=== PATIENT | female | born 1980 | race Caucasian/White ===

== ENCOUNTER → 2016-06-17 | Outpatient (CLI) | payer BC ==
[2016-06-17 11:04] LABS: BASO ABS # 0.06 K/uL (0-0.2); COMPLETE YES; EOS % 2.8 %; HEMATOCRIT 41.9 % (37-47); LYMPH % 33.8 %; LYMPH ABS # 2.03 K/uL (1.2-3.4); MEAN CELL VOLUME 77.9 fL (80-100); MEAN CORPUSCULAR HEMOGLOBIN 27.1 pg (25-34); MEAN CORPUSCULAR HGB CONC 34.8 g/dl (32-36); MEAN PLATELET VOLUME 10.4 fL (7.4-10.4); MONO % 4.3 %; NEUT % 58.1 %; PLATELET COUNT 266 K/uL (130-400); RED BLOOD COUNT 5.38 M/uL (4.2-5.4)
[2016-06-17 11:35] LABS: BLOOD UREA NITROGEN 9 mg/dl (7-18); BUN/CREATININE RATIO 11.7 (10-20); CALCIUM 8.9 mg/dl (8.5-10.1); CARBON DIOXIDE 25 mmol/L (21-32); CHLORIDE 105 mmol/L (98-107); CREATININE 0.75 mg/dl (0.60-1.20); GLUCOSE 80 mg/dl (70-99); POTASSIUM 4.5 mmol/L (3.5-5.1); SODIUM 139 mmol/L (136-145)
[2016-06-17 11:46] LABS: CHOLESTEROL 208 mg/dl (0-200); CHOLESTEROL/HDL RATIO 3.4; HDL CHOLESTEROL 61 mg/dl; LDL CHOLESTEROL CALCULATED 122 mg/dl; TRIGLYCERIDES 127 mg/dl (0-150); VERY LOW DENSITY LIPOPROT CALC 25 mg/dl
== END | disposition home or self-care (01) ==
LOC: C.LAB1850 09:39
PROVIDERS: ATTEND Internal Medicine Geriatric Medicine
DX: R00.2 Palpitations (principal); R06.09 Other forms of dyspnea; R94.6 Abnormal results of thyroid function studies; E05.90 Thyrotoxicosis, unspecified without thyrotoxic crisis or storm

== ENCOUNTER → 2016-06-19 | Outpatient (CLI) | payer BC ==
[2016-06-19 11:38] LABS: THYROID STIMULATING HORMONE 19.3 uIu/ml (0.300-4.500)
[2016-06-19 11:59] LABS: CALCULATED INSULIN SENSITIVITY 0.351; GLUCOSE LOG 1.9031; INSULIN FASTING 8.8 mU/L (3-25); INSULIN LOG 0.9445
[2016-06-25 19:30] LABS: MICROSOMAL AB 353 IU/ML (<9); TSI <89 % baseline (<140)
== END | disposition home or self-care (01) ==
LOC: C.LAB1850 10:15
PROVIDERS: ATTEND Internal Medicine Endocrinology, Diabetes & Metabolism
DX: E05.90 Thyrotoxicosis, unspecified without thyrotoxic crisis or storm (principal); E88.81 Metabolic syndrome and other insulin resistance

== ENCOUNTER → 2017-08-18 | Outpatient (CLI) | payer BC, OTHER | END | disposition home or self-care (01) | LOC: C.LABSPEC 15:53 | PROVIDERS: ATTEND Obstetrics & Gynecology | DX: O09.521 Supervision of elderly multigravida, first trimester (principal) ==

== ENCOUNTER 2018-10-07 08:12 | Inpatient (IN) ==
--- OUTSIDE RECORDS SUMMARY | 2018-10-07 08:17 | External Medical Summary | Continuity of Care Document ---
:1980 Author Name Kim Hobson, Provider Address Unavailable Unavailable , Care Team Providers Name Role Phone Сергей Hobson, [email or web address] Sean [email or web address], 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 82) (O09.523) History of miscarriage (V13.29) (Z87.59) Palpitations (785.1) (R00.2) Patellofemoral syndrome (719.46) (M22.2X9) Thyroiditis (245.9) (E06.9) Insulin resistance (277.7) (E88.81) Allergies and Adverse Reactions No Known Drug Allergies (Allergy) Medications Vitamins TABS Refills: 0 Levothyroxine Sodium 50 MCG Oral Tablet; TAKE 8 TABLET S WEEKLY. Jazlyn Rushing Start: 04-Mar-2018 Quantity: 35 Refills: 5 Procedures History of Need for DTP vaccine Status: Completed History of Tonsillectomy Status: Complet ed History of dilation and curettage Status : Completed Immunizations Tdap (Adacel) On: 22-Sep-2012 Lot #: [id number], Fluzone INJ On: 13-Dec-2012 10:11 Lot #: [id number], SANOFI PASTEUR Tdap (Adacel) On: 08-Jul-2018 16:28 Lot #: [id number], SANOFI PASTEUR Family History Unknown Family Member Family history of Denial Of Any Significant Status: Active Comments: Family History Medical History Father Family history of cardiac disorder (V17.49) (Z82.49) Status: Active Mother Family history of hypertension (V17.49) (Z82.49) Status: Act cherelle Family history of osteoporosis (V17.81) (Z82.62) Status: Act cherelle Interventions Labs/Procedures/ImagingNon-stress test; Done: 06 Oct 2018Follow-ups/Referrals Follow-up visit in 6 weeks; Done: 06 Oct 2018 Plan of Treatment Planned Observations Planned Goals not documented Results Non-stress test (Pending) Laboratory: In [place] 09-Sep-2018 12:29 Non-Stress Test Reactive Non-stress test (Pending) Laboratory: In [place] 16-Sep-2018 16:11 Non-Stress Test Reactive Non-stress test (Pending) Laboratory: In [place] 22-Sep-2018 13:31 Non-Stress Test Reactive Non-stress test (Pending) Laboratory: In [place] 30-Sep-2018 14:44 Non-Stress Test Reactive Non-stress test (Pending) Laboratory: In [place] 06-Oct-2018 11:36 Non-Stress Test Reactive Vital Signs 06-Oct-2018 10:25 Systolic 100 mm[Hg] Diastolic 70 mm[Hg] Height 62 in BMI Calculated 27.33 kg/m2 Weight 149.4 lb BSA Calculated 1.69 m2 30-Sep-2018 14:27 Systolic 110 mm[Hg] Diastolic 82 mm[Hg] Height 62 in BMI Calculated 27.69 kg/m2 Weight 151.4 lb BSA Calculated 1.7 m2 22-Sep-2018 13:05 Systolic 112 mm[Hg] Diastolic 76 mm[Hg] Height 62 in BMI Calculated 27.4 kg/m2 Weight 149.8 lb BSA Calculated 1.69 m2 16-Sep-2018 15:34 Systolic 114 mm[Hg] Diastolic 64 mm[Hg] Height 62 in BMI Calculated 27.14 kg/m2 Weight 148.4 lb BSA Calculated 1.68 m2 09-Sep-2018 11:33 Systolic 102 mm[Hg] Diastolic 70 mm[Hg] Height 62 in BMI Calculated 27.11 kg/m2 Weight 148.2 lb BSA Calculated 1.68 m2 Encounters Appointment; [facility] SC1, Ultrasound 06-Oct-2018 11:00 Encounter Diagnosis: Problem not documented Appointment; OB SC1, Nonstress Test 06-Oct-2018 10:30 Encounter Diagnosis: Problem not documented Appointment; Nikkie Barfield M.D. 30-Sep-2018 14:30 Encounter Diagnosis: Problem not documented Appointment; OB SC1, Nonstress Test 30-Sep-2018 14:00 Encounter Diagnosis: Problem not documented Appointment; Grayson Gomez M.D. 22-Sep-2018 13:30 Encounter Diagnosis: Problem not documented Appointment; OB SC1, Nonstress Test 22-Sep-2018 13:00 Encounter Diagnosis: Problem not documented Appointment; Angelo Schuster M.D. 16-Sep-2018 16:10 Encounter Diagnosis: Problem not documented Appointment; OB SC1, Nonstress Test 16-Sep-2018 15:30 Encounter Diagnosis: Problem not documented Appointment; Mary Edward M.D. 09-Sep-2018 11:50 Encounter Diagnosis: Problem not documented Appointment; OB SC1, Nonstress Test 09-Sep-2018 11:20 Encounter Diagnosis: Problem not documented Appointment; Mary Edward M.D. 02-Sep-2018 16:10 Encounter Diagnosis: Problem not documented Appointment; OB SC1, Nonstress Test 02-Sep-2018 16:00 Encounter Diagnosis: Problem not documented Appointment; Sandra Sauer M.D. 19-Aug-2018 16:10 Encounter Diagnosis: Problem not documented Appointment; Lesa Ann M.D. 05-Aug-2018 11:50 Encounter Diagnosis: Problem not documented Appointment; Sandra Sauer M.D. 22-Jul-2018 12:00 Encounter Diagnosis: Problem not documented Appointment; Mary Edward M.D. 08-Jul-2018 15:50 Encounter Diagnosis: Problem not documented Appointment; Angelo Schuster M.D. 10-Jun-2018 16:00 Encounter Diagnosis: Problem not documented Appointment; Ellie Loo M.D. 16-May-2018 8:30 Encounter Diagnosis: Problem not documented Appointment; Lesa Ann M.D. 13-May-2018 8:50 Encounter Diagnosis: Problem not documented Appointment; OBGYN SC2, Ultrasound 13-May-2018 8:00 Encounter Diagnosis: Problem not documented Appointment; Lesa Ann M.D. 15-Apr-2018 9:40 Encounter Diagnosis: Problem not documented Appointment; Nikkie Barfield M.D. 17-Mar-2018 8:40 Encounter Diagnosis: Problem not documented Appointment; Lesa Ann M.D. 04-Mar-2018 12:00 Encounter Diagnosis: Problem not documented Appointment; OB SC1, Procedure Rm 04-Mar-2018 12:00 Encounter Diagnosis: Problem not documented Appointment; OB SC1, Nursing Station 11-Feb-2018 13:00 Encounter Diagnosis: Problem not documented Appointment; Ellie Loo M.D. 11-Nov-2017 8:30 Encounter Diagnosis: Problem not documented Appointment; Lesa Ann M.D. 26-Aug-2017 11:30 Encounter Diagnosis: Problem not documented Appointment; OBGYN SC1, Ultrasound 19-Aug-2017 15:15 Encounter Diagnosis: Problem not documented Appointment; OB SC1, Procedure Rm 19-Aug-2017 14:00 Encounter Diagnosis: Problem not documented Appointment; Lesa Ann M.D. 19-Aug-2017 14:00 Encounter Diagnosis: Problem not documented Appointment; OB SC1, Nursing Station 18-Aug-2017 13:00 Encounter Diagnosis: Problem not documented Appointment; Jose J Caldwell M.D. 24-Dec-2016 8:30 Encounter Diagnosis: Problem not documented Appointment; Rubi Estrada M.D. 06-Oct-2018 11:20 Encounter Diagnosis: Problem not documented
[2018-10-07] MEDS ORDERED: OXYTOCIN 30 UNITS/500 ML BAG IV PRN ×4 (08:32→15:45)
[2018-10-07 08:52] LABS: Hematocrit (blood only) 37.3 % (37-47); Hemoglobin 12.7 g/dL (12.0-16.0); Mean Corpuscular Volume 86.1 fL (80-100); Mean Platelet Volume 10.8 fL (7.4-10.4); Platelet Count 187 K/uL (130-400); RDW Coefficient of Variation 14.9 % (11.5-14.5); RDW Standard Deviation 47.4 fL (36.4-46.3); Red Blood Count 4.33 M/uL (4.2-5.4); White Blood Count 10.68 K/uL (4.8-10.8)
[2018-10-07] MEDS: LACTATED RINGER'S 1,000 ML IV PRN ×2 (09:28→13:27)
[2018-10-07] MEDS ORDERED: PENICILLIN G POTASSIUM 3 MU in DEXTROSE 5% 100 ML IV PRN (09:34)
--- NOTE | 2018-10-07 09:34 | History & Physical Report ---
Date of Service October 07, 2018 Assessment & Plan (1) Encounter for induction of labor: IUP at 41 weeks presents for induction of labor. will begin pitocin induction requesting epidural analgesia when painful History of Present Illness Primary Care Provider: NO PCP Patient is a 38 yo white female EDC 09/28/18 who presents for induction of labor because of post term . only occasional ctns baby has been active. GBS (-) complicated by hypothyroidism and AMA. Allergies Allergy/AdvReac Type Severity Reaction Status Date / Time No Known Allergies Allergy Unverified 08/26/17 10:20 Patient History Medical History Hypothyroidism Surgical History History of dilation and curettage Social History Preferred Language: Polish Communication Ability: Effective Slurry Worker Required: No Beliefs That Will Affect Care: None marital status: Current Living Situation: Spouse and Family Current Living Situation Comment: , parents, son Other Information That Helps Us Care for You: No Feels Safe at Home: Yes Safety Concerns: Feels Safe At This Time Smoking Status: Never smoker Do You Dip or Chew Tobacco: No Second Hand Exposure: No Tobacco Cessation Education Requested by Patient: No Hx Alcohol Use: No Hx Substance Use: No Review of Systems All systems reviewed & are unremarkable except as noted in HPI & below Physical Exam Constitutional: WD/WN, vitals as above Respiratory: normal respiratory effort, lungs clear to auscultation Cardiovascular: RRR, no murmur, no edema Gastrointestinal (Abdomen): normal bowel sounds, soft, nontender, no hepatosplenomegaly Musculoskeletal: no calf tenderness Genitourinary: OB Exam Abdomen: + estimated weight (6-7 pounds) Manual OB Exam: + cervical dilation 3 cm, + cervical effacement 80% and + station -2 OB Exam Monitor Tracing: + external FHT monitor used, + external uterine monitor used, + category I and + normal FHT variability Results & Data Vital Signs (Past 12 Hours) Vital Signs Temp Pulse Resp BP 10/07/18 08:39 93 H 101/61 10/07/18 08:38 36.6 C 93 H 18 101/61
[2018-10-07] MEDS ORDERED: PENICILLIN G POTASSIUM 6 MU in DEXTROSE 5% 250 ML IV ONE (09:45)
[2018-10-07] MEDS ORDERED: fentaNYL 2MCG/ML ROPIV 1.25MG/ML 100 ML BAG EPI ONE (13:23)
[2018-10-07] MEDS ORDERED: BUPIVACAINE 0.25% 30 ML VIAL ONE (13:23)
[2018-10-07] MEDS ORDERED: ePHEDrine sulfate 50 MG/ML AMP ONE (13:23)
[2018-10-07] MEDS ORDERED: fentaNYL citrate 100 MCG/2 ML VIAL ONE (13:23)
[2018-10-07] MEDS ORDERED: NALOXONE HCL 1 MG in SODIUM CHLORIDE 0.9% 1000ML 1,000 ML IV PRN (13:43)
[2018-10-07] MEDS ORDERED: NALOXONE HCL 0.4 MG/1 ML VIAL/CARP IV PRN (13:43)
[2018-10-07] MEDS ORDERED: ONDANSETRON INJ 2 MG/ML 2 ML VIAL IV PRN (13:43)
[2018-10-07] MEDS ORDERED: ePHEDrine sulfate 50 MG/ML AMP IV PRN (13:43)
[2018-10-07] MEDS ORDERED: NALBUPHINE HCL INJ 10 MG/ML AMP IV PRN (13:43)
[2018-10-07] MEDS ORDERED: DiphenhydrAMINE HCL 50 MG/ML VIAL IV PRN (13:43)
[2018-10-07] MEDS ORDERED: fentaNYL 2MCG/ML ROPIV 1.25MG/ML 100 ML BAG EPI PRN (13:43)
--- NOTE | 2018-10-07 13:46 | Anesthesiology Consultation ---
Date of Service October 07, 2018 Assessment & Plan Chart Review Chart Review: Patient NOT seen in Pre Admission Testing and Acceptable Risk for Labor Epidural Consults Requested none ASA ASA2 Proposed Anesthesia Anesthesia Type: Labor Epidural and CSE Risk / Benefits Reviewed With: PT / POA / Parent / Guardian, Accepts Plan and Informed Consent Obtained History Height/Weight Height: 5 ft 3 in Weight: 68.039 kg Allergies Allergy/AdvReac Type Severity Reaction Status Date / Time No Known Allergies Allergy Unverified 08/26/17 10:20 Medications Home Medications Medication Instructions Recorded Confirmed Last Taken levothyroxine 50 mcg PO DAILY 10/07/18 10/07/18 10/07/18 06:00 vit-iron fum-folic ac 1 tab PO DAILY 10/07/18 10/07/18 10/06/18 22:00 [ Vitamin] Active Medications Generic Name Dose Route Start Last Admin Trade Name Freq PRN Reason Stop Dose Admin Lactated Ringer's 1,000 mls @ 125 mls/hr 10/07/18 08:32 10/07/18 13:19 Lr IV 10/09/18 08:31 999 mls/hr .Q8H PRN Infusion L&D Protocol Protocol Oxytocin 30 units in 500 mls @ 4 mls/hr 10/07/18 11:30 10/07/18 13:20 Pitocin IV 10/09/18 11:29 0.24 units/hr .Q24H PRN 4 mls/hr Labor Induction/Augmentation Titration Protocol 0.24 UNITS/HR NPO Date Last Intake of Fluids: 10/07/18 Time Last Intake of Fluids: 12:00 Date Last Intake of Solids: 10/07/18 Time Last Intake of Solids: 06:00 Past Medical History Medical History Hypothyroidism Exercise / Class Metabolic Activity II 4-5 Yardwork/Stairs/Walk up hill Past Surgical History Surgical History History of dilation and curettage Past Anesthesia History No Hx of Anesthesia Complications and No Family Hx of Anesthesia Complications History of PONV No Hx of PONV Social History Smoking Status: Never smoker Do You Dip or Chew Tobacco: No Hx Alcohol Use: No Hx Substance Use: No Review of Systems no chest pain or sob Physical Exam Vital Signs Last Vital Signs Temp 36.5 C 10/07/18 12:30 Pulse 80 10/07/18 13:41 Resp 16 10/07/18 12:30 BP 108/69 10/07/18 12:30 Pulse Ox 99 10/07/18 13:41 ENMT Mouth: no TMJ abnormality Thyromental Distance: > or= 3.5 Finger Breadths Mallampati Class: II Neck normal visual inspection Respiratory normal respiratory effort Auscultation: lungs clear to auscultation bilaterally Cardiovascular Rate/Rhythm: regular rate and regular rhythm Musculoskeletal Spine: normal cervical ROM Neurologic moves all extremities Psychiatric Orientation: alert and oriented x 3 Testing Laboratory Results 10/07/18 08:41
[2018-10-07] MEDS ORDERED: SUPERCREAM 0.870% 15 GM JAR EXT PRN (15:45)
[2018-10-07] MEDS ORDERED: DIPHTHERIA/TETANUS/PERTUSSIS 0.5 ML SYR/VIAL IM ONE (15:45)
[2018-10-07] MEDS ORDERED: ACETAMINOPHEN 325 MG TAB PO PRN (15:45)
[2018-10-07] MEDS ORDERED: HYDROCORTISONE ACETATE 25 MG SUPP PR PRN (15:45)
[2018-10-07] MEDS ORDERED: OXYCODONE/ACETAMINOPHEN 5mg/325mg TAB PO PRN (15:45)
[2018-10-07] MEDS ORDERED: BISACODYL 10 MG SUPP PR PRN (15:45)
[2018-10-07] MEDS ORDERED: BENZOCAINE 20% AER SPR 82.5 GM CAN EXT PRN (15:45)
--- NOTE | 2018-10-07 15:48 | Anesthesia Procedure Note ---
Date of Service October 07, 2018 Anesthesia Post Epidural Note Vital Signs Vital Signs: Temp Pulse Resp BP Pulse Ox 36.5 C 86 24 104/63 99 10/07/18 13:47 10/07/18 15:43 10/07/18 13:47 10/07/18 15:43 10/07/18 15:26 Notes Mental Status: alert / awake / arousable and participated in evaluation Nausea / Vomiting: adequately controlled Pain: adequately controlled Airway Patency, RR, SpO2: stable & adequate BP & HR: stable & adequate Hydration State: stable & adequate Neuraxial Anesthesia: was administered and sensory block is resolving Anesthetic Complications: no major complications apparent and Pt Satisfied with anesthetic care Epidural: Removed without complications and With tip intact
[2018-10-07] MEDS: DOCUSATE SODIUM 100 MG CAP PO SCH (20:28)
--- NOTE | 2018-10-07 22:40 | Delivery Summary ---
DATE OF OPERATION: 10/07/2018 The patient is a 38-year-old 3, para 1-0-1-1 white female, EDC of 09/28/2018, who presented for induction of labor because of post-term . She was begun on Pitocin augmentation. There was a series of prolonged decels and once the heart tracing returned to normal, the induction continued. She progressed rapidly to full dilation under epidural analgesia. Membranes were ruptured for a thin meconium-stained fluid. She pushed effectively through 2 contractions for delivery of a viable male . There was a loose nuchal cord and a true knot in the cord upon delivery. The rest of the infant delivered easily, was placed on the mother's abdomen for further attention and drying. There was vigorous crying and the infant was moving all 4 limbs. The cord was then clamped and cut after 1 minute. The placenta was expressed intact with a 3-vessel cord. A first-degree perineal laceration was repaired with 3-0 chromic as was a small superficial labial tear that was bleeding. The estimated blood loss was about 200 mL. Mother and infant were doing well after delivery. I attest to the content of the Intraoperative Record and any orders documented therein. Any exception s are noted below.
[2018-10-07] MEDS: IBUPROFEN 600 MG TAB PO PRN (23:09)
[2018-10-08] MEDS ORDERED: LEVOTHYROXINE SODIUM 75 MCG TABLET PO SCH (06:30)
[2018-10-08] MEDS ORDERED: LEVOTHYROXINE SODIUM 50 MCG TABLET PO SCH ×2 (06:30→09:00)
[2018-10-08 06:57] LABS: Hematocrit (blood only) 37.6 % (37-47); Hemoglobin 12.7 g/dL (12.0-16.0); Mean Corpuscular Hgb Conc 33.8 g/dL (32-36); Mean Platelet Volume 11.2 fL (7.4-10.4); Platelet Count 167 K/uL (130-400); RDW Coefficient of Variation 14.9 % (11.5-14.5); RDW Standard Deviation 46.7 fL (36.4-46.3); Red Blood Count 4.37 M/uL (4.2-5.4); White Blood Count 13.03 K/uL (4.8-10.8)
[2018-10-08] MEDS: PRENATAL VITAMIN 1 TAB PO SCH (08:12)
[2018-10-08] MEDS: DOCUSATE SODIUM 100 MG CAP PO SCH ×2 (08:12→20:37)
[2018-10-08] MEDS: IBUPROFEN 600 MG TAB PO PRN (08:12)
--- NOTE | 2018-10-08 08:29 | Obstetrical Progress Note ---
Date of Service October 08, 2018 Assessment & Plan (1) Encounter for care and examination after delivery: satisfactory course continue current care plan Present on Admission?: No Day #:: 1 Subjective Ambulation: ambulating normally Voiding: no voiding problems Passing Gas:: Yes Diet Tolerance:: regular diet Lochia:: Small Feeding Type:: breast feeding expected perineal discomfort relieved with pain meds Review of Systems All systems reviewed & are unremarkable except as noted in HPI & below Physical Exam Constitutional WD/WN, vitals as above Gastrointestinal (Abdomen) normal bowel sounds, soft, nontender, no hepatosplenomegaly Genitourinary OB Exam Abdomen: + fundal height Fundus: + firm and + relation to umbilicus (at U) Results & Data Vital Signs (Past 12 Hours) Vital Signs Temp Pulse Resp BP 10/08/18 03:30 36.7 C 66 20 101/62 10/07/18 23:50 36.8 C 72 18 106/68
[2018-10-08 13:35] VITALS: O2SAT 99
[2018-10-08] MEDS ORDERED: BISACODYL 5 MG TABEC PO SCH (20:00)
[2018-10-09 06:47] LABS: Hematocrit (blood only) 35.6 % (37-47)
[2018-10-09] MEDS: PRENATAL VITAMIN 1 TAB PO SCH (08:41)
[2018-10-09] MEDS: DOCUSATE SODIUM 100 MG CAP PO SCH (08:41)
[2018-10-09] MEDS: IBUPROFEN 600 MG TAB PO PRN (08:41)
[2018-10-09 09:02] VITALS: BP 97/63; PULSE 91; TEMP 97.9
--- NOTE | 2018-10-09 09:16 | Obstetrical Progress Note ---
Date of Service October 09, 2018 Assessment & Plan (1) Encounter for care and examination after delivery: Post day 2 from [facility]. Doing well Stable for discharge Subjective Ambulation: ambulating normally Voiding: no voiding problems Diet Tolerance:: regular diet Lochia:: Moderate Feeding Type:: breast feeding Current Pain Level(1-10): 2 Physical Exam Gastrointestinal (Abdomen) Inspection/Auscultation: abdomen not distended Percussion/Palpation: abdomen soft; abdomen nontender Genitourinary OB Exam Abdomen: + fundal height (Below ) Fundus: + firm Results & Data Vital Signs (Past 12 Hours) Vital Signs Temp Pulse Resp BP Pulse Ox 10/09/18 08:30 36.6 C 91 H 18 97/63 L 99
== END 2018-10-09 13:30 | disposition home or self-care (01) | DRG 807 ==
LOC: 4S1 08:12 → 4S2 18:30